=== PATIENT | male | born 1950 | race Caucasian/White ===

== ENCOUNTER → 2025-09-01 14:44 | Outpatient (REF) | payer BC, SELFPAY | LOC: HWRCS 14:44 | PROVIDERS: ATTENDING PHYSICIAN Internal Medicine Interventional Cardiology; FAMILY PHYSICIAN Family Medicine | DX: Z86.73 Personal history of transient ischemic attack (TIA), and cerebral infarction without residual deficits (principal); R00.1 Bradycardia, unspecified; I77.74 Dissection of vertebral artery | CPT/HCPCS: 93306 ==

== ENCOUNTER → 2025-10-16 08:29 | Outpatient (REF) | payer BC, SELFPAY | LOC: HWRCS 08:29 | PROVIDERS: ATTENDING PHYSICIAN Internal Medicine Interventional Cardiology; FAMILY PHYSICIAN Family Medicine | DX: I49.1 Atrial premature depolarization (principal); I49.3 Ventricular premature depolarization; Z86.73 Personal history of transient ischemic attack (TIA), and cerebral infarction without residual deficits; I45.10 Unspecified right bundle-branch block | CPT/HCPCS: 78452; 93017; A9500 ==